=== PATIENT | male | born 1990 | race Caucasian/White ===

== ENCOUNTER 2018-03-31 08:18 | Day surgery (SDC) | payer OTHER ==
[~2018-03-31] VITALS: Ht 175.3 cm; Wt 124.7 kg
[~2018-03-31 08:18] MED LIST: CLARITIN 10 MG10 MG PO; LEXAPRO20 MG PO
[2018-03-31 09:32] VITALS: BP 148/80; Ht 175.3 cm; Wt 124.7 kg
--- NOTE | 2018-03-31 14:18 | NUR ---
1415 REPORT FROM ISABEL ELLIOTT RN.
--- NOTE | 2018-04-01 18:37 | HP ---
PATIENT: JOSEPH DOUGLASS MEDICAL RECORD: [id number] ACCOUNT: [id number] LOCATION:[facility] : 88 ADMISSION DATE: 03/31/18 PCP: HANNAH CRUZ MD HISTORY AND PHYSICAL EXAMINATION HISTORY OF PRESENT ILLNESS: Joseph is 27. He has a lesion in the right nasal cavity, it is exophytic, about 2 cm in size, involves most of the caudal septum. He is being admitted for excision and closure of that lesion. PAST MEDICAL HISTORY: Otherwise negative. PAST SURGICAL HISTORY: None. CURRENT MEDICATIONS: Lexapro and Claritin. ALLERGIES: No known drug allergies. PHYSICAL EXAMINATION: GENERAL: He is healthy-appearing, developmentally normal. FACE: Normal, symmetric, no lesions. EYES: Sclerae and conjunctivae are normal. EARS: Canals and TMs are normal. 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 ORAL CAVITY AND OROPHARYNX: Tongue protrudes in midline. Pharynx normal. NECK: No masses, no adenopathy. CHEST: Clear. CARDIOVASCULAR: Regular rate and rhythm, no murmur. IMPRESSION: Large obstructing lesion of the right nasal cavity. PLAN: Wide local excision of that lesion and graft closure from the inferior turbinate. TRANSINT:[id number] Voice Confirmation ID: [id number] DOCUMENT ID: [id number] HANNAH CRUZ MD at 1837 CC: [id number] DICTATION DATE: 03/28/18 1055 SHOE TURNER: 03/28/18 1153 [facility] 03/31/18 [id number] [place] [address]
--- NOTE | 2018-04-01 18:38 | OP ---
PATIENT NAME: BARBARA DOUGLASS MEDICAL RECORD: [id number] :88 LOCATION:[facility] ADMISSION DATE: SURGEON: HANNAH CRUZ MD DATE OF OPERATION: 03/31/2018 PREOPERATIVE DIAGNOSIS: Right nasal lesion. POSTOPERATIVE DIAGNOSIS: Right nasal lesion. PROCEDURE: Excision of right nasal lesion, mucosal graft closure from the inferior turbinate. COMPLICATIONS: None. NASAL PACKING: Merocel and Finger-Cot on the right side. COMPLICATIONS: None. DISPOSITION: Recovery, stable. DESCRIPTION OF PROCEDURE: He was brought to the operating room and placed in supine position, sedated and intubated by anesthesia. The eyes were taped. The nose was examined. Both sides of the nose were examined and injected along the septum, and the floor of the nose and inferior turbinates with a total of 1.5 cc of 1% lidocaine with 1:100,000 epinephrine with a long 27-gauge needle. Two Afrin pledgets were placed in each side of the nose. He was positioned, prepped and draped in the usual fashion. Then, all the Afrin pledgets were removed from both sides of the nose. Left side was examined and was normal. The right side was examined. He had this mass obstructing the right nasal cavity. It was examined carefully. A 15-blade was used to make a semicircular incision in front of the mass, leaving normal mucosa and going back and forth inferiorly and superiorly, extending the incision to a full [place] encompassing the complete lesion by 2 cm in diameter. A caudal was then used to dissect this off of the septal cartilage and the specimen was sent for path. Then, both inferior turbinates were medialized and then outfractured. Mucosal graft was cut from the left inferior turbinate, more posteriorly in the nose. This was thinned out with scissors, flayed open and spread out to the thin mucosa. This was then sutured in place onto the nasal septum, some portions through and through to the other side to hold it in place. Then, both inferior turbinates were outfractured. Suction cautery was used to stop any bleeding from the graft site and then mupirocin was used to coat the graft. A Finger-Cot was used to cover about half a Merocel sponge was cut to size, it was tied off and placed in position, coated with mupirocin and then filled with saline. He was awakened, extubated, and transported to recovery in good condition. No complications. TRANSINT:[id number] Voice Confirmation ID: [id number] DOCUMENT ID: [id number] OPERATIVE REPORT [id number] BARBARA DOUGLASS, HANNAH TRINH at 1838 CC: [id number] DICTATION DATE: 03/31/18 1240 LICENSED PHYSICAL THERAPY ASSISTANT: 03/31/18 1449 [facility] 03/31/18 [id number] [place] [address]
== END 2018-03-31 14:45 | disposition home or self-care (01) ==
LOC: D.OPS 08:18 → D.PAN 09:30 → D.OPS 09:45
DX: D18.09 Hemangioma of other sites (principal)